=== PATIENT | female | born 1995 | race African-American/Black ===

== ENCOUNTER 2019-09-12 15:53 | Inpatient (IN) ==
[2019-09-12 17:10] LABS: Cocaine Ur Negative (NEGATIVE); Urine Barbiturate Negative (NEGATIVE); Urine Benzodiazepines Negative (NEGATIVE); Urine Opiates Negative (NEGATIVE); Urine PCP Negative (NEGATIVE)
[2019-09-12 17:20] LABS: Urine THC Positive (NEGATIVE)
[2019-09-12] MEDS ORDERED: RINGER'S SOLUTION,LACTATED 1,000 ML IV ONE (19:47)
[2019-09-12] MEDS ORDERED: OXYTOCIN/DEXTROSE 5%-WATER 30 UNITS/500 ML BAG IV ONE (19:47)
[2019-09-12] MEDS ORDERED: ONDANSETRON 4 MG TAB.RAPDIS PO PRN (19:47)
[2019-09-12] MEDS ORDERED: ceFAZolin SODIUM 1 GM in DEXTROSE 5 % IN WATER 100 ML IV SCH ×2 (20:00)
--- NOTE | 2019-09-12 20:09 | HP ---
Chief Complaint - Chief Complaint Date of Service: 09/12/19 Time of Service: 19:54 Chief Complaint: contractions History of Present Illness: 24 yo at 37 2/7 wks presents to [facility] L&D from [facility] ER where she originally presented with constant lower abdominal pain around 1100 today which then became intermittent contractions of increasing intensity and frequency. This complicated by insufficient care, non-adherence to m edical plan, THC use, unknown GBS status (h/o GBS carrier in prior ), and UTI. Rh positive Rubella immune GBS unknown - (h/o GBS carrier in prior ) Medical History (Last Reviewed 09/12/19 @ 20:00 by Fadi Rashid DO) No significant medical problems Surgical History: Surgical History (Last Reviewed 09/12/19 @ 20:00 by Fadi Rashid DO) No history of previous surgery Family History: Family History (Last Reviewed 09/12/19 @ 20:00 by Fadi Rashid DO) Father Heart disease Social History: (Last Reviewed 09/12/19 @ 20:00 by Fadi Rashid DO) Social History: adopted: No Marital status: Single household members: children, significant other number of children: 2 current occupational status: employed current occupation: [employer] Highest education level completed: high school graduate Service: No Tobacco: Smoking Status: Never smoker Alcohol: alcohol intake: former details: stopped with Substance Use: substance use type: does not use Dietary Habits: caffeine: Yes caffeine comment: 1 daily Type: coffee Review Of Systems (GEN) - Review of Systems Generalized/Overall Review: Present: No Symptoms Reported EENTM: Present: No Symptoms Reported Respiratory: Present: No Symptoms Reported Cardiac: Present: No Symptoms Reported Abdominal: Present: Other - constractions Genitourinary: Present: No Symptoms Reported Musculoskeletal: Present: No Symptoms Reported Neurological: Present: No Symptoms Reported Skin: Present: No Symptoms Reported Endocrine: Present: No Symptoms Reported Allergies/Adverse Reactions: Allergies Allergy/AdvReac Type Severity Reaction Status Date / Time No Known Allergies Allergy Verified 07/22/19 09:00 Home Medications: HOME MEDICATIONS Vits96/Iron Fum/Folic [ S] 1 tab PO DAILY 09/12/19 [Last Taken Unknown] Exam - Exam Vital Signs: Vital Signs - Last Taken Temp 37.0 C 09/12/19 16:15 Pulse 83 09/12/19 16:15 Resp 20 09/12/19 16:15 BP 118/66 09/12/19 16:15 Pulse Ox 98 09/12/19 16:15 Constitutional: Present: Alert, Oriented x3, Cooperative ENT Exam: Present: hearing grossly normal Neck: Present: non-tender, trachea midline Back Exam: Present: no CVA tenderness Breasts: Present: Exam deferred Respiratory: Present: lungs clear, no respiratory distress Cardiovascular/Chest: Present: normal peripheral pulses, regular rate, rhythm, no edema Abdomen: Present: soft, nontender, no rebound tenderness, other - gravid. Absent: suprapubic tenderness /Rectal: Present: Other - 3/50/-2 per nurse Extremity: Present: no pedal edema, no calf tenderness Skin Exam: Present: normal color, warm/dry, no cyanosis Neurologic: Present: alert, normal mood/affect, oriented x 3 Appearance: Present: appropriate appearance, appropriate insight Eye contact: Present: cooperative, good eye contact, normal speech Thoughts: Present: normal thought pattern, normal mood /affect Diagnostic Studies: Abnormal Lab Results 09/12/19 Range/Units Unknown Urine Marijuana (THC) Positive H (NEGATIVE) Laboratory Results Urine Opiates Screen Negative (NEGATIVE) 09/12/19 Unknown Barbiturate Screen Negative (NEGATIVE) 09/12/19 Unknown Ur Phencyclidine Scrn Negative (NEGATIVE) 09/12/19 Unknown Urine Amphetamine Negative (NEGATIVE) 09/12/19 Unknown U Benzodiazepines Scrn Negative (NEGATIVE) 09/12/19 Unknown Urine Cocaine Screen Negative (NEGATIVE) 09/12/19 Unknown Urine Marijuana (THC) Positive (NEGATIVE) H 09/12/19 Unknown Assessment/Plan - Assessment/Plan (1) Labor established Assessment: Admit for labor. Epidural and Pitocin PRN. Will start on Ancef for UTI and to cover potential GBS. Problem: Acute (2) UTI (urinary tract infection) Problem: Acute Qualifiers: Urinary tract infection type: acute cystitis Hematuria presence: with hematuria Qualified Code(s): N30.01 - Acute cystitis with hematuria (3) Previous group B Streptococcus affecting , antepartum Problem: Inactive (4) Non-adherence to medical treatment Problem: Acute (5) Insufficient antepartum care Problem: Acute (6) Substance abuse affecting , antepartum Problem: Acute
--- NOTE | 2019-09-12 20:45 | PN ---
Progess Note - Interim Date: 09/12/19 Time: 20:41 Narrative: 09/12/19 20:41 Patient comfortable without epidural cvx /-3 AROM for light meconium FHT cat 1 Start pitocin for augmentation of labor
[2019-09-12] MEDS ORDERED: RINGER'S SOLUTION,LACTATED 1,000 ML IV PRN (21:00)
[2019-09-13] MEDS ORDERED: LIDOCAINE HCL 50 ML VIAL IJ PRN (03:00)
[2019-09-13] MEDS ORDERED: HYDROcodone/ACETAMINOPHEN 1 EACH TABLET PO PRN (03:41)
[2019-09-13] MEDS ORDERED: BENZOCAINE/MENTHOL 81 SPRAY CAN TP PRN (03:41)
[2019-09-13] MEDS ORDERED: HYDROCORTISONE 30 APPL TUBE TP PRN (03:41)
[2019-09-13] MEDS ORDERED: diphenhydrAMINE HCL 25 MG CAPSULE PO PRN (03:41)
[2019-09-13] MEDS ORDERED: SENNOSIDES 8.6 MG TABLET PO PRN (03:41)
[2019-09-13] MEDS ORDERED: GLYCERIN/WITCH HAZEL LEAF 40 APPL BOX TP PRN (03:41)
[2019-09-13] MEDS ORDERED: OXYTOCIN/DEXTROSE 5%-WATER 30 UNITS/500 ML BAG IV ONE (03:41)
[2019-09-13] MEDS ORDERED: BISACODYL 10 MG SUPP.RECT RC PRN (03:41)
--- NOTE | 2019-09-13 03:42 | OR ---
Operative Report - Dictated Report Narrative: Date of delivery: 09/13/2019 Time of delivery: 030 Gender: male weight: 3112 grams APGARS: 9/9 Procedure: Description of the procedure: The patient is a 24 year old at 37w 3d who presented to labor and delivery and made cervical change from closed to 3cm. She was augmented by AROM and pitocin. She progressed to complete dilation. The patient had a precipitous delivery and delivered prior to my arrival. The placenta was in place. I delivered the placenta by expression and it appeared intact. There were no lacerations. EBL: 250 mL Complications: none Specimens: placenta
[2019-09-13] MEDS ORDERED: BENZOCAINE/MENTHOL 16 EACH BOX MM PRN (04:15)
[2019-09-13] MEDS: IBUPROFEN 800 MG TABLET PO PRN ×2 (07:52→17:07)
[2019-09-13] MEDS: HYDROcodone/ACETAMINOPHEN 1 EACH TABLET PO PRN ×3 (07:53→21:06)
[2019-09-13] MEDS ORDERED: DOCUSATE SODIUM 100 MG CAPSULE PO SCH (09:00)
[2019-09-13] MEDS: DOCUSATE SODIUM 100 MG CAPSULE PO SCH ×2 (10:19→20:18)
[2019-09-13] MEDS ORDERED: CEPHALEXIN MONOHYDRATE 250 MG CAPSULE ONE (20:16)
[2019-09-13] MEDS: CEPHALEXIN MONOHYDRATE 500 MG CAPSULE PO SCH (20:20)
[2019-09-14] MEDS: IBUPROFEN 800 MG TABLET PO PRN ×2 (06:58→22:44)
[2019-09-14] MEDS: HYDROcodone/ACETAMINOPHEN 1 EACH TABLET PO PRN ×2 (09:03→21:04)
[2019-09-14] MEDS: DOCUSATE SODIUM 100 MG CAPSULE PO SCH ×2 (09:03→21:03)
[2019-09-14] MEDS: PRENATAL VITS96/IRON FUM/FOLIC 1 TAB TABLET PO SCH (09:34)
[2019-09-14] MEDS: CEPHALEXIN MONOHYDRATE 500 MG CAPSULE PO SCH ×2 (09:57→21:03)
--- NOTE | 2019-09-14 13:21 | PN ---
Subjective - Date and Time Seen Date: 09/14/19 Time: 13:16 Objective - Vitals Vitals: Last Vital Signs Temp 36.9 C 09/14/19 07:20 Pulse 90 09/14/19 07:20 Resp 16 09/14/19 07:20 BP 116/75 09/14/19 07:20 Pulse Ox 98 09/14/19 07:20 Patient denies complaints. Bottlefeeding. Had some back pain yesterday but is improving since started back on antibiotics. Lochia wnl abdomen - soft, nontender Uterus -firm, at umbilicus - 1 no calf tenderness Impression: day #1 - s/p spontaneous vaginal delivery. Urinary tract infection Plan: Continue routine care and Keflex 500 mg twice daily for UTI. Assessment/Plan - Problems/Diagnosis (1) Labor established Problem: Acute (2) UTI (urinary tract infection) Problem: Acute Qualifiers: Urinary tract infection type: acute cystitis Hematuria presence: with hematuria Qualified Code(s): N30.01 - Acute cystitis with hematuria (3) Previous group B Streptococcus affecting , antepartum Problem: Inactive (4) Non-adherence to medical treatment Problem: Acute (5) Insufficient antepartum care Problem: Acute (6) Substance abuse affecting , antepartum Problem: Acute
[2019-09-15] MEDS: DOCUSATE SODIUM 100 MG CAPSULE PO SCH (08:01)
[2019-09-15] MEDS: CEPHALEXIN MONOHYDRATE 500 MG CAPSULE PO SCH (08:02)
[2019-09-15] MEDS: HYDROcodone/ACETAMINOPHEN 1 EACH TABLET PO PRN (08:04)
[2019-09-15] MEDS: IBUPROFEN 800 MG TABLET PO PRN (08:05)
[2019-09-15] MEDS: PRENATAL VITS96/IRON FUM/FOLIC 1 TAB TABLET PO SCH (08:18)
--- NOTE | 2019-09-15 08:49 | PN ---
Subjective - Date and Time Seen Date: 09/15/19 Time: 08:47 Subjective Narrative: Pt without complaints Objective Objective Narrative: See vital signs - Review of Systems Generalized/Overall Review: Reports: No Symptoms Reported Misc: All systems neg except as marked - Vitals Vitals: Last Vital Signs Temp 36.9 C 09/15/19 07:21 Pulse 69 09/15/19 07:21 Resp 16 09/15/19 07:21 BP 119/68 09/15/19 07:21 Pulse Ox 100 09/15/19 07:21 - Exam Constitutional: Present: Alert, Oriented x3, Cooperative, No distress Abdomen: Present: soft, nontender, nondistended Extremity: Present: non-tender, no calf tenderness Skin Exam: Present: normal color, warm/dry, no cyanosis Appearance: Present: appropriate appearance Eye contact: Present: cooperative Thoughts: Present: normal thought pattern Assessment/Plan Plan Narrative: PPD 2 s/p Doing well Discharge home Follow-up in 4 weeks
[2019-09-15] MEDS ORDERED: MEDROXYPROGESTERONE ACET 150 MG/ML SYRG IM ONE (08:53)
[2019-09-15 15:17] VITALS: BP 123/66
== END 2019-09-15 16:15 | disposition home or self-care (01) | DRG 806 ==
LOC: OBCLINIC 15:53 → OB 19:34
PROVIDERS: ADMIT Obstetrics & Gynecology; ATTEND Obstetrics & Gynecology
CPT/HCPCS: 59025; 80307; 87081; 88307